=== PATIENT | male | born 1955 | race Caucasian/White ===

== ENCOUNTER 2018-04-27 06:28 | Day surgery (SDC) ==
[2018-04-27] MEDS ORDERED: LIDOCAINE 1% 20 ML MDV ID STA (07:03)
[2018-04-27 07:08] VITALS: TEMP 98.5
[2018-04-27] MEDS ORDERED: DIPRIVAN 20 ML VIAL IVP ONE (07:57)
[2018-04-27 11:09] VITALS: BP 121/66
--- NOTE | 2018-04-28 09:40 | OP ---
PROCEDURE: COLONOSCOPY TO THE CECUM WITH SNARE POLYPECTOMY. ENDOSCOPIST: Obie BANDA M.D. INDICATION: HISTORY OF POLYPS. INSTRUMENT: [id number]-190. MEDICATION: PER ANESTHESIA. PROCEDURE: The patient was positioned for colonoscopy. The digital rectal exam was negative. The colonoscope was inserted through the anus and advanced to the cecum. The cecum was identified using the ileocecal valve and the appendiceal orifice as landmarks. The scope was slowly withdrawn through an adequately prepped colon. Harrison Bowel Prep Score = 9. On insertion we found an irregular sessile polyp at 60 cm. We removed this in two pieces. A single clip was placed to close the defect. In the cecum, a small polyp was removed using hot snare. Tissue was not retrieved at this time. A small polyp at the hepatic flexure removed using snare cautery. Identified the scar at 65 cm from the previous polypectomy. Diverticulosis in the left colon. The retroflex exam was otherwise normal. The patient tolerated the procedure without immediate complication. Withdrawal time 13 minutes and 20 seconds. PLAN: 1. Will repeat his exam in one year. 2. He can resume his Plavix in three days. CC: DR. EDUARDO MTZ
== END 2018-04-27 09:00 | disposition home or self-care (01) ==
LOC: SURG 06:28
PROVIDERS: ATTEND Internal Medicine Gastroenterology
DX: Z86.010 Personal history of colon polyps (principal); D12.3 Benign neoplasm of transverse colon; D12.4 Benign neoplasm of descending colon